=== PATIENT | male | born 1975 | race African-American/Black ===

== ENCOUNTER 2017-05-13 00:46 | Emergency (ER) | payer BC, MEDICAID ==
[~2017-05-13] VITALS: Ht 182.9 cm; Wt 134.8 kg
[~2017-05-13 00:46] MED LIST: ASPI325T PO; ATOR40TA49 PO; METO25 PO; Pill Splitter OTHER
[2017-05-13 00:55] VITALS: BP 131/63; PULSE 57; RESP 20; TEMP 97.5; O2SAT 97
[2017-05-13 01:05] VITALS: BP 153/76; PULSE 67; RESP 16; TEMP 97.5; O2SAT 97
--- NOTE | 2017-05-13 02:03 | PD ---
HPI Chief Complaint: Cold / Flu Symptoms Time Seen by Provider: 01:56 Travel History International Travel<30 days: No Contact w/Intl Traveler<30days: No Traveled to known affect area: No History of Present Illness HPI The patient is a 41-year-old male that complains of a cough productive of white/ clear sputum for 2 weeks. Initially he states he had a fever but he has no fever now. The cough is persistent, he does not have short of breath. He does not smoke. PFSH Past Medical History Asthma: No Blood Disorders: No Anxiety: No Depression: No Cancer: No Cardiovascular Problems: No COPD: No Cerebrovascular Accident: No Diabetes: No Endocrine: No Gastrointestinal Disorders: No Glaucoma: No Genitourinary: No Headaches: No Hepatitis: No Hiatal Hernia: No Hypertension: No Immune Disorder: No Implanted Vascular Access Dvce: No Medical other: No Musculoskeletal: No Neurologic: No Psychiatric: No Reproductive: No Respiratory: Yes (SLEEP APNEA) Migraines: No Seizures: No Sleep Apnea: Yes Thyroid Disease: No Ulcer: No Tetanus Vaccination: < 5 Years Influenza Vaccination: No Past Surgical History Abdominal Surgery: No Appendectomy: No Cardiac Surgery: No Cholecystectomy: No Ear Surgery: No Endocrine Surgery: No Eye Surgery: No Genitourinary Surgery: No Gynecologic Surgery: No Neurologic Surgery: No Oral Surgery: Yes (WISDOM TEETH EXTRACTION) Pacemaker: No Thoracic Surgery: No Tonsillectomy: Yes Other Surgery: Yes (RHINOPLASTY 2011) Family History Family Hypercholesterolemia: Yes Social History Alcohol Use: Yes (OCC) Tobacco Use: No Substance Use: No Allergies-Medications (Allergen,Severity, Reaction): Coded Allergies: penicillin G (Unverified Allergy, Mild, HIVES, 01/11/17) Reported Meds & Prescriptions Reported Meds & Active Scripts Active Lipitor 40 Mg Tab (Atorvastatin Calcium) 40 Mg Tab 40 Mg PO HS [Pill Splitter] 1 EA Misc 1 Ea OTHER UNSCH PRN Metoprolol Tartrate 25 mg (Metoprolol Tartrate) 25 Mg Tab 12.5 Mg PO BID Aspirin 325 Mg Tab (Aspirin) 325 Mg Tab 325 Mg PO DAILY Review of Systems Except as stated in HPI: all other systems reviewed are Neg Physical Exam Narrative GENERAL: The patient is alert, oriented 3 in no respiratory distress. His vital signs are normal. SKIN: Focused skin assessment warm/dry. HEAD: Atraumatic. Normocephalic. EYES: Pupils equal and round. No scleral icterus. No injection or drainage. ENT: No nasal bleeding or discharge. Mucous membranes pink and moist. NECK: Trachea midline. No JVD. CARDIOVASCULAR: Regular rate and rhythm. No murmur appreciated. RESPIRATORY: No accessory muscle use. Clear to auscultation. Breath sounds equal bilaterally. GASTROINTESTINAL: Abdomen soft, non-tender, nondistended. Hepatic and splenic margins not palpable. MUSCULOSKELETAL: No obvious deformities. No clubbing. No cyanosis. No edema. NEUROLOGICAL: Awake and alert. No obvious cranial nerve deficits. Motor grossly within normal limits. Normal speech. PSYCHIATRIC: Appropriate mood and affect; insight and judgment normal. Data Data Last Documented VS Vital Signs Date Time Temp Pulse Resp B/P (MAP) Pulse Ox O2 Delivery O2 Flow Rate FiO2 05/13/17 01:05 97.5 67 16 153/76 (101) 97 Room Air Orders Orders Chest, Pa & Lat (05/13/17 02:03) MDM Medical Decision Making Medical Screen Exam Complete: Yes Emergency Medical Condition: Yes Medical Record Reviewed: Yes Interpretation(s) The chest x-ray is normal. Differential Diagnosis Pneumonia, bronchitis, viral upper respiratory infection Narrative Course The patient likely has a viral upper respiratory infection. He wants me right now antibiotic and I will try Zithromax because his symptoms of been going on for 2 weeks. He should follow-up with his primary care physician. Diagnosis Primary Impression: Viral upper respiratory infection Med/Other Pt SpecificInfo: Prescription(s) given Scripts Azithromycin (Zithromax) 500 Mg Tab 500 MG PO DAILY for Infection for 5 Days, #5 TAB 0 Refills Prov: Artem Vincent MD 05/13/17 Disposition: 01 DISCHARGE HOME Condition: Stable Artem Vincent MD May 13, 2017 02:03
--- NOTE | 2017-05-13 02:29 | RADRPT ---
EXAM DATE/TIME: 05/13/2017 02:15 [facility] COMPARISON: CHEST PA & LAT, July 08, 2015, 8:24. INDICATIONS : Cough, chest congestion for 2 weeks MEDICAL HISTORY : None. SURGICAL HISTORY : None. ENCOUNTER: Initial ACUITY: 2 weeks PAIN SCORE: 0/10 LOCATION: Bilateral chest FINDINGS: PA and lateral views of the chest. The lungs are clear. Cardiomediastinal silhouette within normal li mits. No evidence of pleural effusion or pneumothorax. CONCLUSION: No acute cardiopulmonary disease identified. Pritesh Lopez MD on May 13, 2017 at 2:26 Board Certified Radiologist. This report was verified electronically.
[2017-05-13] MEDS ORDERED: ZITH500T PO (02:36)
[2017-05-13] MEDS ORDERED: AZITHROMYCIN 250 MG TAB PO ONE (02:45)
== END 2017-05-13 02:56 | disposition home or self-care (01) ==
LOC: PHED 00:46
DX: J06.9 Acute upper respiratory infection, unspecified (principal); B34.9 Viral infection, unspecified; G47.30 Sleep apnea, unspecified
CPT/HCPCS: 71020; 99283